=== PATIENT | male | born 1960 | race Caucasian/White ===

== ENCOUNTER 2016-12-09 09:02 | Emergency (ER) | payer OTHER ==
[~2016-12-09] VITALS: Ht 172.7 cm; Wt 68.5 kg
[2016-12-09 10:42] VITALS: BP 129/89
== END 2016-12-09 10:42 | disposition home or self-care (01) ==
LOC: ED 09:02
DX: M54.2 Cervicalgia (principal); M54.5 Low back pain; S61.552A Open bite of left wrist, initial encounter; L03.114 Cellulitis of left upper limb; F20.9 Schizophrenia, unspecified; Z88.0 Allergy status to penicillin; W57.XXXA Bitten or stung by nonvenomous insect and other nonvenomous arthropods, initial encounter; Y93.89 Activity, other specified; Y92.89 Other specified places as the place of occurrence of the external cause
CPT/HCPCS: J2270; Q0162

== ENCOUNTER 2017-06-17 21:37 | Emergency (ER) | payer OTHER ==
[~2017-06-17] VITALS: Ht 167.6 cm; Wt 68.0 kg
[2017-06-18 00:36] VITALS: BP 117/71
== END 2017-06-18 03:06 | disposition home or self-care (01) ==
LOC: ED 21:37
DX: M62.838 Other muscle spasm (principal); M50.30 Other cervical disc degeneration, unspecified cervical region; Z88.0 Allergy status to penicillin
CPT/HCPCS: J1885

== ENCOUNTER 2018-05-30 16:50 | Emergency (ER) | payer OTHER ==
[~2018-05-30] VITALS: Ht 167.6 cm; Wt 63.5 kg
[2018-05-30 16:59] VITALS: Ht 167.6 cm; Wt 63.5 kg
[2018-05-30 18:39] LABS: BASOPHIL % 0.9 % (0-2); PLATELET COUNT 237 x10^3mcL (130-400); RED CELL DISTRIBUTION WIDTH 13.9 % (11.5-14.5)
[2018-05-30 19:18] LABS: CALCIUM 8.3 mg/dL (8.5-10.1); CARBON DIOXIDE 30.8 mmol/L (21-32); CHLORIDE SERUM 102 mmol/L (98-107); CREATININE SERUM 0.8 mg/dL (0.7-1.3); GFR1 > 60 mL/min; GLUCOSE SERUM 96 mg/dL (74-106); POTASSIUM SERUM 3.5 mmol/L (3.5-5.1); SODIUM SERUM 138 mmol/L (136-145)
[2018-05-30 19:38] VITALS: BP 114/59
== END 2018-05-30 19:38 | disposition home or self-care (01) ==
LOC: ED 16:50
PROVIDERS: Emergency Medicine
DX: L03.116 Cellulitis of left lower limb (principal); Z71.6 Tobacco abuse counseling
CPT/HCPCS: 99406; J0696; Q0092

== ENCOUNTER 2018-07-08 11:20 | Emergency (ER) | payer OTHER ==
[~2018-07-08] VITALS: Ht 167.6 cm; Wt 64.0 kg
[2018-07-08 11:26] VITALS: BP 157/84
== END 2018-07-08 12:27 | disposition home or self-care (01) ==
LOC: ED 11:20
DX: L02.414 Cutaneous abscess of left upper limb (principal)

== ENCOUNTER 2019-01-16 17:49 | Emergency (ER) | payer OTHER ==
[~2019-01-16] VITALS: Ht 170.2 cm; Wt 71.2 kg
[2019-01-16 17:53] VITALS: Ht 170.2 cm; Wt 71.2 kg
[2019-01-16 19:01] LABS: UA SPECIFIC GRAVITY >=1.030 (1.005-1.035); microscopic required? YES
[2019-01-16 19:02] LABS: urine erythrocyte NEGATIVE (NEGATIVE)
[2019-01-16 19:07] LABS: BASOPHIL % 0.7 % (0-2); PLATELET COUNT 194 x10^3mcL (130-400)
[2019-01-16 19:23] LABS: CALCIUM 8.9 mg/dL (8.5-10.1); CARBON DIOXIDE 27.3 mmol/L (21-32); CHLORIDE SERUM 108 mmol/L (98-107); GFR1 > 60 mL/min; GLUCOSE SERUM 143 mg/dL (74-106); POTASSIUM SERUM 4.1 mmol/L (3.5-5.1); SODIUM SERUM 146 mmol/L (136-145)
[2019-01-16 19:28] LABS: ALKALINE PHOSPHATASE 118 U/L (46-116); ALT/SGPT 39 U/L (16-63); AST/SGOT 28 U/L (15-37); BILIRUBIN TOTAL 0.17 mg/dL (0.20-1.00); C REACTIVE PROTEIN 1.7 mg/dL (<=0.9); TOTAL PROTEIN, SERUM 7.2 g/dL (6.4-8.2); URIC ACID 5.7 mg/dL (3.5-7.2)
[2019-01-16 19:30] LABS: ALBUMIN 2.9 g/dL (3.4-5.0)
[2019-01-16 19:56] LABS: ERYTHROCYTE SED RATE 45 mm/hr (0-20)
[2019-01-16 21:03] VITALS: BP 100/58
== END 2019-01-16 21:03 | disposition home or self-care (01) ==
LOC: ED 17:49
PROVIDERS: Emergency Medicine
DX: D69.0 Allergic purpura (principal); F31.9 Bipolar disorder, unspecified; F20.9 Schizophrenia, unspecified; F41.9 Anxiety disorder, unspecified; Z88.0 Allergy status to penicillin
CPT/HCPCS: 36415; J7512

== ENCOUNTER 2019-04-08 12:25 | Emergency (ER) | payer OTHER ==
[~2019-04-08] VITALS: Ht 167.6 cm; Wt 70.3 kg
[2019-04-08 12:45] VITALS: BP 114/70; Ht 167.6 cm; Wt 70.3 kg
== END 2019-04-08 14:39 | disposition home or self-care (01) ==
LOC: ED 12:25
DX: L02.414 Cutaneous abscess of left upper limb (principal); F31.9 Bipolar disorder, unspecified; F20.9 Schizophrenia, unspecified; F17.210 Nicotine dependence, cigarettes, uncomplicated; Z88.0 Allergy status to penicillin; Z91.013 Allergy to seafood; Z86.19 Personal history of other infectious and parasitic diseases
CPT/HCPCS: J2001